=== PATIENT | female | born 1990 | race Caucasian/White ===

== ENCOUNTER 2019-02-27 08:34 | Outpatient (CLI) | payer BC ==
--- NOTE | 2019-02-27 09:34 | MMO ---
Bilateral MAMMO Bilat Diag [facility]. CLINICAL HISTORY: Patient is 28 years old and is seen for diagnostic exam and skin thickening or retraction on clinical examination in the left breast. The patient has no family history of breast cancer. The patient has no personal history of cancer. VIEWS: The views performed were: bilateral craniocaudal with tomosynthesis; bilateral mediolateral oblique with tomosynthesis; and bilateral mediolateral with tomosynthesis. FILMS COMPARED: The present examination has been compared to a prior imaging study performed at [facility] on 02/27/2019. MAMMOGRAM FINDINGS: There are scattered fibroglandular densities. There is an asymmetry seen in the upper-outer region of the left breast. Tomosynthesis images show the abnormality to represent superimpostion of normal breast parenchyma. There are no suspicious masses, suspicious calcifications, or new areas of architectural distortion. IMPRESSION: THERE IS NO MAMMOGRAPHIC EVIDENCE OF MALIGNANCY. A ROUTINE FOLLOW-UP MAMMOGRAM AT AGE 38 IS RECOMMENDED. THE RESULTS OF THIS EXAM WERE SENT TO THE PATIENT. ACR BI-RADS Category 2 - Benign finding MAMMOGRAPHY NOTE: 1. A negative mammogram report should not delay a biopsy if a dominant of clinically suspicious mass is present. 2. Approximately 10% to 15% of breast cancers are not detected by mammography. 3. Adenosis and dense breasts may obscure an underlying neoplasm.
--- NOTE | 2019-02-27 09:54 | ULT ---
LEFT BREAST ULTRASOUND: HISTORY: Dimpling in the upper outer aspect of the left breast. COMPARISON: Mammogram from 02/27/2019. TECHNIQUE: Multiplanar hernandez-scale and color Doppler images were obtained in a targeted ultrasound of the upper o uter aspect of the left breast. FINDINGS: Normal appearing breast parenchyma is seen. No cyst is seen. No solid mass or suspicious shadowing is present. IMPRESSION: BI-RADS category 1-Negative. Annual screening mammography is recommended. POS: [facility]
== END 2019-02-27 08:35 | disposition home or self-care (01) ==
LOC: BICMAMMO 08:34
PROVIDERS: ATTEND Family Medicine
DX: N64.9 Disorder of breast, unspecified (principal)
CPT/HCPCS: 77066; G0279

== ENCOUNTER 2019-08-21 21:58 | Emergency (ER) | payer BC ==
[2019-08-21 22:41] LABS: Bilirubin Negative (Negative); Blood, Urine Large (Negative); Clarity Cloudy (Clear); Glucose, Urine (Dipstick) Negative (Negative); Leukocyte Small (Negative); Nitrite Negative (Negative); Protein, Urine (Dipstick) 30 mg/dL (Neg-Trace); Urobilinogen 0.2 mg/dL (Less than 2)
[2019-08-21 22:46] LABS: RBC/HPF 21-50 HPF (0-3)
[2019-08-21 22:47] LABS: Bacteria/HPF 1+ HPF (None Seen)
[2019-08-21 22:57] LABS: #Basophils 0.1 thou/uL (0.0-0.2); #Eosinphils 0.3 thou/uL (0.0-0.7); #Lymphocytes 3.6 thou/uL (1.20-3.40); #Monocytes 0.7 thou/uL (0.11-0.59); #Neutrophils 9.8 thou/uL (1.40-6.50); %Basophils 0.4 % (0.0-1.0); %Eosinophils 1.8 % (0.0-10.0); %Lymphocytes 25.3 % (21.0-51.0); %Monocytes 4.7 % (0.0-10.0); %Neutrophils 67.9 % (42.0-75.0); Hemoglobin 13.4 g/dL (12.0-16.0); Mean Corpuscular HGB CONC 35.2 g/dL (32.0-36.0); Mean Corpuscular Hemoglobin 32.2 pg (27.0-31.0); Mean Corpuscular Volume 91.5 fL (78.0-98.0); Mean Platelet Volume 7.8 fL (7.4-10.4); Platelet Count 306 thou/uL (130-400); RBC Distribution Width 11.6 % (11.5-14.5); Red Blood Cell (RBC) Count 4.17 mill/uL (4.20-5.40); White Blood Cell (WBC) Count 14.4 thou/uL (4.8-10.8)
[2019-08-21] MEDS ORDERED: Cyclobenzaprine 10 MG TAB ONE (23:22)
[2019-08-21] MEDS ORDERED: Acetaminophen 500 MG TAB ONE (23:22)
[2019-08-21 23:34] LABS: BHCG - Serum POSITIVE (NEGATIVE); Pregs Control Background? CLEAR/WHITE (CLR/WHITE); Pregs Control Bar Appear? YES (CONTROL BAR)
== END 2019-08-22 00:10 | disposition home or self-care (01) ==
LOC: ERS 21:58
DX: O03.4 Incomplete spontaneous abortion without complication (principal)
CPT/HCPCS: 36415; 81003; 81015; 84702; 84703; 85025; 86900; 86901; 99284

== ENCOUNTER 2025-06-25 12:42 | Outpatient (CLI) | payer BC ==
[~2025-06-25 12:42] MED LIST: Iopamidol 370 76% 100 ML VIAL ONE
== END 2025-06-25 12:43 | disposition home or self-care (01) ==
LOC: CT 12:42
PROVIDERS: ATTEND Family Medicine
DX: R59.1 Generalized enlarged lymph nodes (principal); M53.82 Other specified dorsopathies, cervical region
CPT/HCPCS: 70492; Q9967